=== PATIENT | male | born 1985 | race Caucasian/White ===

== ENCOUNTER 2021-08-24 01:55 | Inpatient (IN) | payer BC ==
[2021-08-24] VITALS (9 sets, daily range): BP systolic 112–143; BP diastolic 66–93; PULSE 60–104; TEMP 97.4–99.3
[~2021-08-24] VITALS: Ht 182.9 cm; Wt 117.5 kg
[2021-08-24 02:57] LABS: COLLECTION METHOD CLEAN CATCH
[2021-08-24 03:03] LABS: MUCOUS Present (NOT PRESENT); PH 5 (5-8); SQUAMOUS EPITHELIAL None Seen /hpf (0-10); URINE APPEARANCE Clear (CLEAR/HAZY); URINE BACTERIA None Seen /hpf (NONE SEEN); URINE BILIRUBIN Negative (NEGATIVE); URINE BLOOD Negative (NEGATIVE); URINE COLOR Yellow (YELLOW); URINE GLUCOSE Negative (NEGATIVE); URINE KETONE Negative (NEGATIVE); URINE LEUKOCYTE ESTERASE Negative (NEGATIVE); URINE NITRATE Negative (NEGATIVE); URINE PROTEIN(semi-quant) Negative (NEGATIVE); URINE RBC 0-2 /hpf (0-2); URINE UROBILINOGEN Negative (NEGATIVE)
[2021-08-24 03:10] LABS: BASO # 0.1 K/mm3 (0.0-0.2); BASO % 0.5 % (0.0-2.0); EOS # 0.4 K/mm3 (0.0-0.7); EOS % 3.1 % (0.0-4.0); GRAN # 9.6 K/mm3 (1.4-6.5); GRAN % 67.1 % (42.2-75.2); HEMATOCRIT 44.1 % (42.0-52.0); HEMOGLOBIN 15.7 g/dl (13.5-18.0); MEAN CELL VOLUME 85 fl (80.0-100.0); MEAN CORPUSCULAR HEMOGLOBIN 30 pg (27-31); MEAN CORPUSCULAR HGB CONC 36 g/dl (33.0-37.0); MEAN PLATELET VOLUME 10.3 fl (7.4-10.4); MONO # 1.1 K/mm3 (0.1-0.6); MONO % 7.9 % (1.7-9.3); PLATELET COUNT 271 K/mm3 (130-400); REDCELL DISTRIBUTION WIDTH-CV 12.3 % (11.5-14.5)
[2021-08-24 03:19] LABS: ALBUMIN 4.4 gm/dL (3.5-5.0); BILIRUBIN,TOTAL 0.6 mg/dL (0.2-1.2); CALCIUM 9.2 mg/dL (8.4-10.2); CREATININE, serum 1.29 mg/dL (0.72-1.25); POTASSIUM 3.9 mmol/L (3.5-4.5); TOTAL PROTEIN 7.6 gm/dL (6.2-8.1)
--- NOTE | 2021-08-24 08:00 | NUR ---
Patient admitted to room from the ED for RLQ abd. pain. , Alyssa, is at bedside. Patient is alert and oriented, answers questions appropriately. Denies nausea. Denies pain but does report tenderness to RLQ abdomen. 20G noted to right hand. Skin intact. Denies further needs at this time.
--- NOTE | 2021-08-24 11:20 | NUR ---
Patient prepped for Or. Consent to be obtained once patient speaks with . Patient to Or with [facility] barber. Patient to Or waiting room.
--- NOTE | 2021-08-24 12:37 | NUR ---
dye worker met with patient to complete discharge plan. Patient's Kezia ([phone]) present at bedside. Patient lives at home with his in [place]. Patient is independent with his ADL's and does not utilize any DME to assist with mobility. Patient has no oxygen needs at home. PCP is Dr. Hanna and he utilizes [facility] for medications with no cost difficulty. Patient doesn't know if he has a DPOA-HC established. Education provided and patient verbalizes his understanding. Patient does not wish to establish one at this time. He is planning on returning home after discharge with no concerns. Discharge plan: Home with spouse
[2021-08-24] MEDS ORDERED: NORCO 325 MG-51 TAB PO (13:07)
[2021-08-24] MEDS ORDERED: MOTRIN 600600 MG/TAB PO (13:07)
--- NOTE | 2021-08-24 13:57 | NUR ---
Patient returned to room at 1350 s/p lap appy. Three abdominal incisions noted; no dressing. No wound drainage noted. is at bedside. Patient denies any nausea. States pain is "not much". Denies further needs at this time.
--- NOTE | 2021-08-24 16:10 | NUR ---
Patient alert, awake. Denies pain. Reports feeling "a little" sore while up to use the toilet. Pt. urinated x 1 without difficulty. No c/o positional dizziness. No nausea. IV site right ac discontinued
--- NOTE | 2021-08-24 16:28 | NUR ---
Discharge instructions and home medications reviewed with patient and spouse. Patient understood and had no further questions. Pt discharged home and seatbelted.
== END 2021-08-24 16:31 | disposition home or self-care (01) | DRG 343 ==
LOC: COL.ER 01:55 → SURG 04:23
PROVIDERS: Emergency Medicine; ADMIT Surgery
PROC: 0DTJ4ZZ Resection of Appendix, Percutaneous Endoscopic Approach (ICD-10-PCS; principal; 2021-08-24 11:30)
DX: K35.80 Unspecified acute appendicitis (principal); Z20.822 Contact with and (suspected) exposure to COVID-19
CPT/HCPCS: J1100; J1885; J2270; J2405; J2543; J2704; J2710; J3010; J7030; J7120; Q9967